=== PATIENT | female | born 1965 | race African-American/Black ===

== ENCOUNTER 2018-01-12 07:58 | Day surgery (SDC) | payer OTHER ==
[2018-01-11 14:45] VITALS: BMI 24.9
[2018-01-12] MEDS ORDERED: PROPOFOL 20 ML ONE (09:07)
[2018-01-12] MEDS ORDERED: LIDOCAINE HCL/PF 2% SDV 5ML VIAL ONE (09:07)
[2018-01-12] MEDS ORDERED: LIDOCAINE HCL 2% JELLY 10 ML CARTRIDGE ONE (09:36)
[2018-01-12 10:05] VITALS: TEMP 97.5
[2018-01-12 12:25] VITALS: BP 124/65; PULSE 64
== END 2018-01-12 10:50 | disposition home or self-care (01) ==
LOC: JASU-ENDO 07:58
PROVIDERS: ATTEND Internal Medicine Gastroenterology
PROC: 0W3P8ZZ Control Bleeding in Gastrointestinal Tract, Via Natural or Artificial Opening Endoscopic (ICD-10-PCS; principal; 2018-01-12 08:00)
DX: K64.8 Other hemorrhoids (principal)
CPT/HCPCS: 84703